=== PATIENT | male | born 1990 | race Caucasian/White ===

== ENCOUNTER 2024-07-16 15:06 | Emergency (ER) | payer MEDICAID, SELFPAY ==
[2024-07-16 15:07] VITALS: BMI 24.4
[2024-07-16 15:56] VITALS: BP 130/74; PULSE 89; RESP 18; TEMP 36.9; O2SAT 99
--- NOTE | 2024-07-16 16:09 | XR_ITS ---
Examination: Fingers, left hand fourth digit 3 views Technique: AP, oblique, lateral views left hand fourth digit 3 views. Exam date and time: July 16, 2024 1625 hours INDICATIONS: Laceration to the hand today with fourth digit pain FINDINGS: Soft tissue defect adjacent to the distal phalanx fourth digit No fracture 8 mm linear opaque foreign body in the soft tissue adjacent to the proximal phalanx fourth digit IMPRESSION: 8 mm linear opaque foreign body in the soft tissue adjacent to the proximal phalanx fourth digit
--- NOTE | 2024-07-16 16:45 | EDNOTE_ITS ---
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 Patient denies any other injuries. Unknown tetanus date. Mode of arrival: ambulatory Related Data Allergies Allergy/AdvReac Type Severity Reaction Status Date / Time No Known Allergies Allergy Unknown Verified 07/16/24 15:07 KISSING BUG Allergy Severe Anaphylaxis Uncoded 07/16/24 15:07 Review of Systems Review of Systems Systems Reviewed: All systems reviewed, normal except as documented Narrative Review of Systems: Gen: No fever, no chills, no weight loss EYES: No discharge, no visual changes, no pain HEENT: No ear pain, no congestion, no sore throat PULM: No shortness of breath, no cough, no congestion CV: No chest pain, no dyspnea on exertion, no palpitations GI: No nausea, no vomiting, no diarrhea, no pain, no constipation : No frequency, no urgency,? no dysuria Musc/skel: No joint pain, no back pain Skin: No rash?, ++lac ED Exam Narrative Physical exam: General: Sittiing in Exam table in no acute distress, answering questions appropriately HENT: normocephalic, atraumatic, EOMI, PERRLA, moist mucous membranes Chest: chest wall is nontender Cardiac: regular rate and rhythm, normal S1 and S2, no murmurs, rubs, or gallops, capillary refill ?2 seconds Pulmonary: clear to auscultation bilaterally, no wheezing, crackles, or rhonchi Abdominal: active bowel sounds, soft, nontender, nondistended Neuro: A&OX3, CN II-XII intact, sensation grossly intact bilaterally in UE and LE. Skin:4th distal phalanx palmar aspect skin partial skin avulsion. Ext: no lower extremity edema Course Quality Measures none Orders Category Date Time Status Wound Care NOW Care 07/16/24 16:10 Completed XR finger LT min 2V Stat Exams 07/16/24 16:09 Completed TET,DIP/PERT AC (Adult)-Tdap [Boostrix Adult (Tdap) Med 07/16/24 16:09 Discontinued Vacc] 0.5 ml IMI .ONCE ONE Vital Signs Vital signs: Vital Signs Temperature 98.5 F 07/16/24 15:56 Pulse Rate 89 07/16/24 15:56 Respiratory Rate 18 07/16/24 15:56 Blood Pressure 130/74 07/16/24 15:56 Pulse Oximetry (%) 99 07/16/24 15:56 Oxygen Delivery Method Room Air 07/16/24 15:56 Wound / Laceration MDM Narrative MDM Narrative:: 4th distal phalanx palmar aspect skin partial skin avulsion. Patient's wound was cleansed with Betadine and normal saline copious amount. X-ray demonstrated no fracture possible foreign body or pack and soft tissue. Visual inspection no visible foreign body. Patient's wound was cleansed with copious amount of fluid. Unable to repair due to skin missing. A wet-to-dry dressing was applied advised that he will need to do dressings at home change in 24 hours. Antibio tics sent to the pharmacy. Tetanus vaccine updated. Patient data External records reviewed:: [facility] previous records Clinical information provided by:: patient Social determinants that could affect healthcare access:: none Patient has the following chronic illnesses:: no How is presenting disease/condition affected by chronic disease/condition?: no chronic disease Evaluation data The following diagnostics were reviewed and interpreted by me:: radiology exam(s) Lab and/or radiology exams considered but not ordered:: no Interpretation Summary: cc: Elias Gore MD; Aj Meneses MD; Aniya ([facility])Sheela~ Examination: Fingers, left hand fourth digit 3 views Technique: AP, oblique, lateral views left hand fourth digit 3 views. Exam date and time: July 16, 2024 1625 hours INDICATIONS: Laceration to the hand today with fourth digit pain FINDINGS: Soft tissue defect adjacent to the distal phalanx fourth digit No fracture 8 mm linear opaque foreign body in the soft tissue adjacent to the proximal phalanx fourth digit IMPRESSION: 8 mm linear opaque foreign body in the soft tissue adjacent to the proximal phalanx fourth digit Medications / Prescriptions Medications or Prescriptions considered but not ordered:: no Medication administrations:: Medication Administration History Discontinued Medications Diphtheria/Tetanus/Acell Pertussis (Diphth,Pertuss(Acell),Tet Vac 0.5 Ml Syr- Adult) 0.5 ml IMi .ONCE ONE Stop: 07/16/24 16:10 Last Admin: 07/16/24 18:30 Dose: Not Given Documented By: OA Non-Admin Reason: Patient Refused All medications administered and effective Consultations Consultation(s) initiated? (list below): No Diagnosis Wound Differential Diagnosis: laceration, abscess, abrasion and avulsion of skin Most likely diagnosis given after review of the tests above:: Skin avulsion/laceration Admission Indicated Admission indicated?: not indicated Admission Request Was there a request for admission?: No Disposition Plan Disposition Plan: Discharge Discharge Attestation Discharge Attestation: The patient and all family members were given an opportunity to ask questions and understood the discharge instructions. Discharge instructions specifically effects, indications for sooner follow up or return to the emergency department, and the expected course of current diagnosis. Patient condition: Stable Discharge Plan Plan Patient Disposition: HOME (Self Care) Patient condition on transfer: Stable Prescriptions/Referrals Referrals: Elias Gore MD [Primary Care Provider] - In 1 week Problem List Clinical Impression: Avulsion of skin, Laceration Patient/Caregiver Discharge Instructions Discharge Activity: activity as tolerated Education Materials: Contusion Bone Tx Additional Instructions: As discussed we were unable to repair the laceration due to the skin avulsion. Please keep area clean and dry take antibiotics as directed have a wound recheck In 2 to 3 days return to the emergency department is any worsening symptoms any condition. Print Language: [place] Stand Alone Forms: Gabbi Award Info., Patient Portal Info Letter CASI/KARINE Supervising Physician CASI/KARINE Supervising Physician: Dr [email or web address]
== END 2024-07-16 18:31 | disposition home or self-care (01) ==
PROVIDERS: Emergency Provider Family Medicine; PCP Family Medicine
DX: S61.215A Laceration without foreign body of left ring finger without damage to nail, initial encounter (principal); X58.XXXA Exposure to other specified factors, initial encounter; Y93.89 Activity, other specified; Y92.009 Unspecified place in unspecified non-institutional (private) residence as the place of occurrence of the external cause
CPT/HCPCS: 73140; 99283